=== PATIENT | male | born 1990 | race Caucasian/White ===

== ENCOUNTER 2019-06-19 18:49 | Emergency (ER) | payer OTHER ==
[2019-06-19 20:30] LABS: ABS Eosinophils 0.1 10^3/ul (0-0.6); ABS Lymphocytes 1.2 10^3/ul (1.0-4.8); ABS Monocytes 0.6 10^3/ul (0-0.8); ABS Neutrophils 4.3 10^3/ul (1.5-7.7); Eosinophil % 2.1 %; Hematocrit 46 % (42-52); Hemoglobin 16.6 g/dL (14.0-18.0); Lymphocyte % 19.9 %; Mean Corpuscular HGB Conc 36 g/dL (31-36); Mean Corpuscular Hemoglobin 33 pg (27-31); Mean Corpuscular Volume 91 fL (80-94); Mean Platelet Volume 6.8 fL (7.4-10.4); Nucleated Red Blood Cells % 0.1; Platelet Count 205 10^3/uL (150-450); Red Blood Count 5.06 10^6 /uL (4.18-5.48); Red Cell Distribution Width 13 % (10-15); White Blood Count 6.3 10^3/uL (3.5-10.8)
[2019-06-19] MEDS ORDERED: Ondansetron INJ* 2 MG/ML VIAL IV ONE (20:38)
--- NOTE | 2019-06-19 20:41 | ED ---
Abdominal Pain/Male - HPI Summary HPI Summary: Patient is a 29 y/o M presenting to ED with complaints of LLQ pain and N/V/D. He endorses RASMUSSEN, decreased appetite and sleep disturbance as well. Fever, chills , shaking are denied. Sx have been present for the past few days. He states that he when he woke up this morning, 06/19/19, he vomited and had diarrhea immediately afterwards. Diarrhea is characterizes as "thin" and he notes that this morning, his diarrhea appeared "black" for the first time. He states that [facility], [facility], patient was told that he had blood in his stool. Patient did not notice any quyen blood in his stool. He describes vomit as "banana-pudding type stuff". No recent travel or camping is noted. He had some broad-leaf plantain smoothie a few days ago as well, which he notes is not part of his typical diet. GF had similar food without Sx. No PMHx, no daily medications, no PSHx is noted. Patient works in construction. He is a current pack a day smoker. Patient drinks a case of beer a week typically, but notes that he has not had any alcohol today. 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 Home medications and allergies are reviewed. - History of Current Complaint Chief Complaint: EDAbdPain Stated Complaint: ABD PAIN, VOMITING PER PT Time Seen by Provider: 06/19/19 20:31 Hx Obtained From: Patient Onset/Duration: Lasting Days, Resolved Timing: Constant, Lasting Days Pain Intensity: 4 Pain Scale Used: 0-10 Numeric Location: Discrete At: LLQ Aggravating Factor(s): Nothing Alleviating Factor(s): Other: - marijuana Associated Signs And Symptoms: Positive: Blood in Stool - per [facility], patient did not notice quyen blood in stool, Decreased Appetite, Nausea, Vomiting, Diarrhea, Other - positive - sleep disturbance, RASMUSSEN; negative - chills , shaking. Negative: Fever - Allergies/Home Medications Allergies/Adverse Reactions: Allergies Allergy/AdvReac Type Severity Reaction Status Date / Time No Known Allergies Allergy Verified 08/29/19 18:56 PMH/Surg Hx/FS Hx/Imm Hx Endocrine/Hematology History: Denies: Hx Diabetes Cardiovascular History: Denies: Hx Hypertension, Hx Pacemaker/ICD Respiratory History: Denies: Hx Asthma Sensory History: Denies: Hx Hearing Aid Psychiatric History: Denies: Hx Panic Disorder - Surgical History Surgery Procedure, Year, and Place: KNEE SURGERY Hx Anesthesia Reactions: No Infectious Disease History: No Infectious Disease History: Denies: Traveled Outside the [place] in Last 30 Days - Family History Known Family History: Positive: Other - Colon cancer - Social History Alcohol Use: Occasionally Alcohol Amount: 24 beers/week Substance Use Type: Reports: Marijuana Smoking Status (MU): Heavy Every Day Tobacco Smoker Type: Cigarettes Amount Used/How Often: 3/4 PPD Review of Systems Constitutional: Other - negative - shaking; positive - sleep disturbance Negative: Fever, Chills Gastrointestinal: Other - positive - decreased appetite Positive: Abdominal Pain, Vomiting, Diarrhea, Nausea Genitourinary: Other - blood in stool per [facility], patient did not notice quyen blood in stool Positive: Headache All Other Systems Reviewed And Are Negative: Yes Physical Exam - Summary Physical Exam Summary: Appearance: Well-appearing, Well-nourished, lying in bed comfortably Skin: Warm, dry, no obvious rash Eyes: sclera anicteric, no conjunctival pallor ENT: mucous membranes moist, pharynx appears normal Neck: Supple, nontender Respiratory: Clear to auscultation, no signs of respiratory distress Cardiovascular: Normal S1, S2. No murmurs. Normal distal pulses in tibial and radial bilaterally. Abdomen: Soft, LLQ tenderness, normal active bowel sounds present Musculoskeletal: Normal, Strength/ROM Intact Neurological: A&Ox3, awake and alert, mentation is normal, speech is fluent and appropriate Psychiatric: affect is normal, does not appear anxious or depressed Triage Information Reviewed: Yes Vital Signs On Initial Exam: Initial Vitals Temp Pulse Resp BP Pulse Ox 99.1 F 80 16 137/106 97 06/19/19 18:54 06/19/19 18:54 06/19/19 18:54 06/19/19 18:54 06/19/19 18:54 Vital Signs Reviewed: Yes Diagnostics - Vital Signs Vital Signs Temp Pulse Resp BP Pulse Ox 06/19/19 18:54 99.1 F 80 16 137/106 97 - Laboratory Lab Results: Lab Results 06/19/19 Range/Units 20:21 WBC 6.3 (3.5-10.8) 10^3/uL RBC 5.06 (4.18-5.48) 10^6 /uL Hgb 16.6 (14.0-18.0) g/dL Hct 46 (42-52) % MCV 91 (80-94) fL MCH 33 H (27-31) pg MCHC 36 (31-36) g/dL RDW 13 (10-15) % Plt Count 205 (150-450) 10^3/uL MPV 6.8 L (7.4-10.4) fL Neut % (Auto) 68.3 % Lymph % (Auto) 19.9 % [place] % (Auto) 9.4 % Eos % (Auto) 2.1 % Baso % (Auto) 0.3 % Absolute Neuts (auto) 4.3 (1.5-7.7) 10^3/ul Absolute Lymphs (auto) 1.2 (1.0-4.8) 10^3/ul Absolute Monos (auto) 0.6 (0-0.8) 10^3/ul Absolute Eos (auto) 0.1 (0-0.6) 10^3/ul Absolute Basos (auto) 0.0 (0-0.2) 10^3/ul Absolute Nucleated RBC 0.0 10^3/ul Nucleated RBC % 0.1 Result Diagrams: 06/19/19 20:21 06/19/19 20:21 Lab Statement: Any lab studies that have been ordered have been reviewed, and results considered in the medical decision making process. - CT CT ABD/PEL CT Interpretation Completed By: Radiologist Summary of CT Findings: IMPRESSION: 1. There may be a small hiatal hernia. 2. There are numerous mildly prominent lymph nodes at the root of the mesentery. consistent with mild mesenteric lymphadenopathy. 3. No other acute CT pathology. THIS REPORT WAS REVIEWED BY DR. MISHRA. Re-Evaluation - Re-Evaluation First Eval Re-Evaluation Time: 00:22 Comment: Results of labs and tests were discussed with the patient. He was given 2 5/325 Percocet tabs to take at home as well as a prescription for Percocet and Zofran. Patient to follow up with PCP within a week. Patient is agreeable with this plan. Abdominal Pain Male Course/Dx - Course Course Of Treatment: Patient is a 29 y/o M presenting to ED with complaints of abdominal pain and N/V/D. He endorses RASMUSSEN, decreased appetite and sleep disturbance as well. Fever, chills, shaking are denied. Sx have been present for the past few days. He states that he when he woke up this morning, 06/19/19 , he vomited and had diarrhea immediately afterwards. Diarrhea is characterizes as "thin" and he notes that this morning, his diarrhea appeared "black" for the first time. He states that [facility], [facility], patient was told that he had blood in his stool. No PMHx, no daily medications, no PSHx is noted. On physical exam, patient is noted to have mild LLQ tenderness. Bloodwork was obtained. Abnormal labs include MCH 33, MPV 6.8, glucose 105, total bilirubin 1.8, alk phos 111. WBC was 6.3, AST 28, ALT 36, CRP 7.68, lipase 16. UA was negative. During ED course, patient received fluids , Zofran [address] ABD/PEL IMPRESSION: 1. There may be a small hiatal hernia. 2. There are numerous mildly prominent lymph nodes at the root of the mesentery. consistent with mild mesenteric lymphadenopathy. 3. No other acute CT pathology. Results of labs and tests were discussed with the patient. He was given 2 5/325 Percocet tabs to take at home as well as a prescription for Percocet and Zofran. Patient to follow up with PCP within a week. Patient is agreeable with this plan. - Diagnoses Provider Diagnoses: Mesenteric adenitis Discharge ED - Sign-Out/Discharge Documenting (check all that apply): Patient Departure - discharge Patient Received Moderate/Deep Sedation with Procedure: No - Discharge Plan Condition: Stable Disposition: HOME Prescriptions: Ondansetron ODT TAB* [Zofran 4 MG Odt TAB*] 8 mg PO Q6H PRN #12 tab.odt PRN Reason: Nausea oxyCODONE/Acetamin 5/325 MG* [Percocet 5/325 TAB*] 2 tab PO Q4H PRN #10 tab MDD 4 PRN Reason: Pain - Severe Patient Education Materials: Mesenteric Adenitis (ED) Referrals: [facility] [Outside] - 1 Week (if not better) - Billing Disposition and Condition Condition: STABLE Disposition: Home - Attestation Statements Document Initiated by Lois: Yes Documenting Scribe: COURTNEY RAMIREZ Provider For Whom Lois is Documenting (Include Credential): CRISTI MISHRA MD Scribe Attestation: COURTNEY Meadows, scribed for CRISTI MISHRA MD on 06/20/19 at 0309. Scribe Documentation Reviewed: Yes Provider Attestation: The documentation as recorded by the COURTNEY gasca accurately reflects the service I personally performed and the decisions made by me, CRISTI MISHRA MD Status of Scribe Document: Viewed
[2019-06-19 20:46] LABS: Albumin 4.9 g/dL (3.2-5.2); BUN/Creatinine Ratio 13.3 (8-20); C Reactive Protein 7.68 mg/L (<8.01); Calcium 9.9 mg/dL (8.6-10.3); EGFR African American 107.9 (>60); EGFR Non-African American 89.2 (>60); Globulin 2.5 g/dL (2-4); Potassium 3.7 mmol/L (3.5-5.0); Total Bilirubin 1.8 mg/dL (0.2-1.0); Total Protein 7.4 g/dL (6.4-8.9)
[2019-06-19] MEDS: NS 0.9% 1000 ML** 2,000 ML IV ONE (20:49)
[2019-06-19] MEDS ORDERED: Iohexol 300* (CONTRAST) 10 ML SDV IV ONE (22:05)
[2019-06-19 22:55] LABS: Urine Appearance Clear; Urine Bilirubin Negative (Negative); Urine Blood Negative (Negative); Urine Color Yellow; Urine Glucose Negative (Negative); Urine Ketones Negative (Negative); Urine Nitrite Negative (Negative); Urine Protein Negative (Negative); Urine Specific Gravity 1.016 (1.010-1.030); Urine Urobilinogen Negative (Negative)
[2019-06-20] MEDS ORDERED: oxyCODONE/Acetamin 5/325 MG* TAB PO ONE (00:29)
[2019-06-20 00:56] VITALS: BP 135/91
== END 2019-06-20 01:00 | disposition home or self-care (01) ==
LOC: ED 18:49
DX: I88.0 Nonspecific mesenteric lymphadenitis (principal); K44.9 Diaphragmatic hernia without obstruction or gangrene; F17.210 Nicotine dependence, cigarettes, uncomplicated
CPT/HCPCS: 36415; 74177; 80053; 81003; 83690; 85025; 86140; 96361; 96374; 99284; A9270-GY; J2405; Q9967

== ENCOUNTER 2019-10-18 09:27 | Emergency (ER) | payer OTHER ==
--- NOTE | 2019-10-18 11:20 | UC ---
FLU HPI - HPI Summary HPI Summary: PT reports chills, fatigue, fever, vomiting, sore throat and cough. has been sleeping a lot. nothing makes it better/worse. Of note pt. lost his brother 3 days ago. - History of Current Complaint Chief Complaint: UCHeadameme Stated Complaint: MIGRAINE,COUGH,VOMITTING,DIARRHEA Time Seen by Provider: 10/18/19 10:57 Hx Obtained From: Patient Pain Intensity: 8 Pain Scale Used: 0-10 Numeric - Allergy/Home Medications Allergies/Adverse Reactions: Allergies Allergy/AdvReac Type Severity Reaction Status Date / Time No Known Allergies Allergy Verified 10/18/19 10:56 Home Medications: Home Medications D-Methorphan/PE/Acetaminophen [Day Time Cold-Flu Liquid] 30 ml PO ONCE 10/18/19 [History Confirmed 10/18/19] Ibuprofen TAB* [Advil TAB*] 1 tab PO ONCE 10/18/19 [History Confirmed 10/18/19] PMH/Surg Hx/FS Hx/Imm Hx - Additional Past Medical History Additional PMH: no chronic conditions. Previously Healthy: Yes - Surgical History Surgical History: Yes Surgery Procedure, Year, and Place: R knee 2014 - Family History Known Family History: Positive: Other - Colon cancer - Social History Alcohol Use: Occasionally Alcohol Amount: 24 beers/week Substance Use Type: None Smoking Status (MU): Heavy Every Day Tobacco Smoker Type: Cigarettes Amount Used/How Often: 3/4 PPD Review of Systems All Other Systems Reviewed And Are Negative: Yes Constitutional: Positive: Fever, Chills, Fatigue Skin: Positive: Negative Eyes: Negative: Drainage ENT: Positive: Sore Throat, Sinus Congestion. Negative: Ear Ache, Nasal Discharge Respiratory: Positive: Cough. Negative: Shortness Of Breath Cardiovascular: Negative: Palpitations, Chest Pain Gastrointestinal: Positive: Vomiting. Negative: Diarrhea Neurological: Positive: Headache. Negative: Weakness, Paresthesia, Numbness Physical Exam Triage Information Reviewed: Yes Appearance: Well-Appearing Vital Signs: Initial Vital Signs Temp 99.1 F 10/18/19 10:57 Pulse 90 10/18/19 10:57 Resp 15 10/18/19 10:57 BP 150/86 10/18/19 10:57 Pulse Ox 99 10/18/19 10:57 Vital Signs Reviewed: Yes Eyes: Positive: Conjunctiva Clear ENT: Positive: TMs normal, Uvula midline Neck: Positive: Supple, Nontender, No Lymphadenopathy Respiratory Exam: Normal Cardiovascular Exam: Normal Neurological: Positive: Alert Skin: Negative: Rashes Flu Course/Dx - Course Course Of Treatment: Constellation of symptoms eualling viral syndrome ; acute. Vitals are good. and rapid strep and rapid flu were both NEG. advsied to maintain hydration and rest and strongly encouraged bereavement counseling for pt. - Differential Dx/Diagnosis Differential Diagnosis/HQI/PQRI: Bronchitis, Upper Respiratory Infection, Other Provider Diagnosis: Bereavement, Viral syndrome Discharge ED - Sign-Out/Discharge Documenting (check all that apply): Patient Departure All imaging exams completed and their final reports reviewed: No Studies - Discharge Plan Condition: Good Disposition: HOME Patient Education Materials: Grief and Loss (ED), Viral Syndrome (ED) Referrals: No Primary Care Phys,NOPCP [Primary Care Provider] - Additional Instructions: Please consider following up with primary care. - Billing Disposition and Condition Condition: GOOD Disposition: Home
[2019-10-18 11:43] LABS: Influenza A Molecular NEGATIVE (Negative); Influenza B Molecular NEGATIVE (Negative)
[2019-10-18 11:51] VITALS: BP 141/90
== END 2019-10-18 11:51 | disposition home or self-care (01) ==
LOC: UCCORT 09:27
DX: R68.83 Chills (without fever) (principal); R11.10 Vomiting, unspecified; J02.9 Acute pharyngitis, unspecified; R05 Cough; R19.7 Diarrhea, unspecified; G43.909 Migraine, unspecified, not intractable, without status migrainosus; F17.210 Nicotine dependence, cigarettes, uncomplicated; Z63.4 Disappearance and death of family member
CPT/HCPCS: 87651; 99211; G0463

== ENCOUNTER 2019-12-27 10:22 | Emergency (ER) | payer SELFPAY ==
[2019-12-27 10:42] VITALS: BP 127/84
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
[2019-12-27] MEDS ORDERED: Acetaminophen TAB* 325 MG PO ONE (11:09)
== END 2019-12-27 12:13 | disposition home or self-care (01) ==
LOC: UCCORT 10:22
DX: S06.9X1A Unspecified intracranial injury with loss of consciousness of 30 minutes or less, initial encounter (principal); F17.210 Nicotine dependence, cigarettes, uncomplicated; R53.83 Other fatigue; W00.0XXA Fall on same level due to ice and snow, initial encounter; Y92.9 Unspecified place or not applicable
CPT/HCPCS: 70450; 70486; 99212; A9270-GY; G0463